=== PATIENT | female | born 1980 | race Caucasian/White ===

== ENCOUNTER 2021-05-27 12:42 | Emergency (ER) | payer BC ==
[2021-05-27] MEDS ORDERED: MORPHINE SULFATE 4 MG/ML SYRINGE IV STA (12:56)
[2021-05-27] MEDS ORDERED: ONDANSETRON 4 MG/2 ML VIAL IVP STA (12:56)
[2021-05-27] MEDS ORDERED: SODIUM CHLORIDE 0.9% 1,000 ML IV STA (12:56)
[2021-05-27] MEDS ORDERED: diphenhydrAMINE 50 MG/ML 1 ML VIAL IVP STA (12:56)
[2021-05-27 13:09] VITALS: BP 128/78; PULSE 117; RESP 16; TEMP 98.3
--- NOTE | 2021-05-27 13:10 | ED ---
General Adult HPI - General Chief complaint: Headache Stated complaint: right arm numbness Time Seen by Provider: 05/27/21 12:50 Source: patient, EMS Mode of arrival: EMS - History of Present Illness Initial comments: Dictation was produced using [employer] dictation software. please excuse any grammatical, word or spelling errors. Chief Complaint: 41-year-old male presents with episode of chest pain, bilateral hand numbness and now headache History of Present Illness: Patient is a 41-year-old female she has past medical history of chronic anisocoria of the left eye. She is here today for symptoms of chest pain. She states she had a Chest pain that resolved on its own lasted for several minutes. Shortly after she began developing tingling to the bilat eral hands. Patient also while en route to the emergency department developed headache. She states the headache is to her occipital superior cervical area. Patient reports that her headache is severe. Onset of her headache was within the last hour. Patient is no history of intracranial aneurysms. She has chronic history of anisocoria that has been worked up previously with no apparent reason. She denies any weakness of the extremities. She denies any chest pain when evaluated at the bedside. Denies any vision changes. Denies any neck stiffness. The ROS documented in this emergency department record has been reviewed and confirmed by me. Those systems with pertinent positive or negative responses have been documented in the HPI. All other systems are other negative and/or noncontributory. PHYSICAL EXAM: General Impression: Alert and oriented x3, mild distress secondary to pain HEENT: Normocephalic atraumatic, extra-ocular movements intact, left pupil is 4 mm and fixed and nonreactive to light, right pupil is 3 mm reactive, mucous membranes moist. Cardiovascular: Heart regular rate and rhythm Chest: Able to complete full sentences, no retractions, no tachypnea Abdomen: abdomen soft, non-tender, non-distended, no organomegaly Musculoskeletal: Pulses present and equal in all extremities, no peripheral edema Motor: no focal deficits noted Neurological: CN II-XII grossly intact, no focal motor or sensory deficits noted, no neck stiffness Skin: Intact with no visualized rashes Psych: Normal affect and mood ED course: 41 yo female presents emergency department for severe headache. Patient denies any history of intracranial disease. Patient also complains of bilateral hand paresthesias. Clinical presentation consistent with neuropathy. She has no focal neurologic deficits. Laboratory evaluation obtained. CBC shows mild leukocytosis of 14.6. Metabolic panel is negative. Computed tomography scan of brain shows no acute processes. Cervical spine CT is negative. Patient reevaluated at bedside at 2:30 PM found to be in stable medical condition. Patient is feeling better. She states the symptoms in her hands have gone away. Recommended to patient that week and treat her symptoms a little bit better she requested a Toradol injection and that she be discharge. Patient stable. She is advised to follow-up with primary care doctor. - Related Data Allergies Allergy/AdvReac Type Severity Reaction Status Date / Time cephalexin [From Keflex] Allergy Unknown Verified 05/27/21 13:46 Penicillins Allergy Anaphylaxis Verified 05/27/21 13:46 Sulfa (Sulfonamide Allergy Unknown Verified 05/27/21 13:46 Antibiotics) Review of Systems ROS Statement: Those systems with pertinent positive or pertinent negative responses have been documented in the HPI. ROS Other: All systems not noted in ROS Statement are negative. Past Medical History Past Medical History: Blood Disorder, Coronary Artery Disease (CAD), Deep Vein Thrombosis (DVT), Vascular Disorder Additional Past Medical History / Comment(s): Polycythemia Vera, Arterial Valve Malformation History of Any Multi-Drug Resistant Organisms: None Reported Past Surgical History: Breast Surgery, Cardiac Ablation, Section Past Psychological History: No Psychological Hx Reported Smoking Status: Current every day smoker Past Alcohol Use History: Occasional Past Drug Use History: None Reported Course Vital Signs 05/27/21 05/27/21 12:51 13:10 Temperature 98.3 F Pulse Rate 117 H Pulse Rate [ 117 H Brand Planner ] Respiratory 16 Rate Blood Pressure 128/78 O2 Sat by Pulse 98 Oximetry Medical Decision Making - Lab Data Result diagrams: 05/27/21 13:32 05/27/21 13:32 Lab Results 05/27/21 05/27/21 Range/Units 13:32 13:32 WBC 14.6 H (3.8-10.6) k/uL RBC 4.74 (3.80-5.40) m/uL Hgb 15.5 (11.4-16.0) gm/dL Hct 45.5 (34.0-46.0) % MCV 96.1 (80.0-100.0) fL MCH 32.6 (25.0-35.0) pg MCHC 34.0 (31.0-37.0) g/dL RDW 12.6 (11.5-15.5) % Plt Count 202 (150-450) k/uL MPV 9.0 Neutrophils % 82 % Lymphocytes % 12 % Monocytes % 5 % Eosinophils % 1 % Basophils % 1 % Neutrophils # 11.9 H (1.3-7.7) k/uL Lymphocytes # 1.7 (1.0-4.8) k/uL Monocytes # 0.7 (0-1.0) k/uL Eosinophils # 0.1 (0-0.7) k/uL Basophils # 0.1 (0-0.2) k/uL Sodium 140 (137-145) mmol/L Potassium 3.8 (3.5-5.1) mmol/L Chloride 111 H (98-107) mmol/L Carbon Dioxide 22 (22-30) mmol/L Anion Gap 7 mmol/L BUN 9 (7-17) mg/dL Creatinine 0.69 (0.52-1.04) mg/dL Est GFR (CKD-EPI)AfAm >90 (>60 ml/min/1.73 sqM) Est GFR (CKD-EPI)NonAf >90 (>60 ml/min/1.73 sqM) Glucose 87 (74-99) mg/dL Calcium 8.4 (8.4-10.2) mg/dL Disposition Clinical Impression: Headache Disposition: HOME SELF-CARE Condition: Good Instructions (If sedation given, give patient instructions): Acute Headache (ED) Is patient prescribed a controlled substance at d/c from ED?: No Referrals: Russell Page MD [Primary Care Provider] - 1-2 days
--- NOTE | 2021-05-27 13:39 | CT ---
EXAMINATION TYPE: CT brain roberto j[facility]ston DATE OF EXAM: 05/27/2021 COMPARISON: NONE HISTORY: Head and neck pain CT DLP: 1240.2 mGycm. Automated Exposure Control for Dose Reduction was Utilized. TECHNIQUE: CT scan of the head and cervical spine are performed without contrast. FINDINGS: There is no acute intracranial hemorrhage, mass effect, or midline shift identified. The ventricles and sulci are within normal limits in size. Mcgregor-white matter differentiation is maintai blas The globes are intact and the visualized sinuses are clear. Cervical spine is visualized in its entirety from C1 through upper thoracic levels and demonstrates s traightened alignment without evidence of acute fracture or dislocation. Prevertebral soft tissue ap pears within normal limits. The C1-C2 articulation is within normal limits on the coronal images. V ertebral body heights and disc space heights are obtained. Spinal canal is preserved. Axial images sh ow no suspicious abnormality. Lung apices show no pneumothorax. Thyroid gland appears within normal l imits. IMPRESSION: 1. There is no acute fracture or dislocation evident in the cervical spine. 2. No acute intracranial hemorrhage or midline shift is seen.
[2021-05-27 13:51] LABS: Basophils # (A) 0.1 k/uL (0-0.2); Basophils % (A) 1 %; Eosinophils # (A) 0.1 k/uL (0-0.7); Eosinophils % (A) 1 %; HCT 45.5 % (34.0-46.0); HGB 15.5 gm/dL (11.4-16.0); Lymphocytes # (A) 1.7 k/uL (1.0-4.8); Lymphocytes % (A) 12 %; MCH 32.6 pg (25.0-35.0); MCV 96.1 fL (80.0-100.0); Monocytes # (A) 0.7 k/uL (0-1.0); Monocytes % (A) 5 %; Neutrophils # (A) 11.9 k/uL (1.3-7.7); Neutrophils % (A) 82 %; Platelet Count 202 k/uL (150-450); RBC 4.74 m/uL (3.80-5.40); RDW 12.6 % (11.5-15.5); WBC 14.6 k/uL (3.8-10.6)
[2021-05-27 14:07] LABS: African American GFR (CKD) >90 (>60 ml/min/1.73 sqM); Anion Gap 7 mmol/L; Blood Urea Nitrogen 9 mg/dL (7-17); Calcium 8.4 mg/dL (8.4-10.2); Carbon Dioxide 22 mmol/L (22-30); Chloride 111 mmol/L (98-107); Glucose 87 mg/dL (74-99); Non-African American GFR(CKD) >90 (>60 ml/min/1.73 sqM); Potassium 3.8 mmol/L (3.5-5.1); Sodium 140 mmol/L (137-145)
[2021-05-27] MEDS ORDERED: KETOROLAC 15 MG/ML 1 ML VIAL IVP STA (14:34)
== END 2021-05-27 14:59 | disposition home or self-care (01) ==
LOC: EDBD → EC 12:42
DX: R51.9 Headache, unspecified (principal); I25.10 Atherosclerotic heart disease of native coronary artery without angina pectoris; F17.200 Nicotine dependence, unspecified, uncomplicated; Z88.0 Allergy status to penicillin; Z88.1 Allergy status to other antibiotic agents; Z88.2 Allergy status to sulfonamides; Z86.718 Personal history of other venous thrombosis and embolism
CPT/HCPCS: 99285; 96374; 96375 ×2; 96361; 36415; 93005; 80048; 85025; 72125; 70450; J2270; J1200; J2405